=== PATIENT | male | born 2000 | race Asian ===

== ENCOUNTER 2022-07-01 16:57 | Emergency (ER) | payer OTHER, SELFPAY ==
[2022-07-01] VITALS (7 sets, daily range): BP systolic 112–114; BP diastolic 67–68; PULSE 54–72; RESP 14–16; TEMP 36.8; O2SAT 97–100; BMI 20.5
--- NOTE | 2022-07-01 17:37 | ED.GENADULT ---
HPI - General Adult General Chief complaint: Unspecified Complaint, Adult Stated complaint: Hives on face, and a cough Time Seen by Provider: 07/01/22 17:09 Source: patient Mode of arrival: ambulatory Limitations: no limitations History of Present Illness HPI narrative: 22-year-old male coming in today complaining of hives on his face. He states that the rash started a few days ago and is only getting worse. He also states that he has a mild cough and he is quite concerned because COVID infections are increasing at [place] he states. He would like to be tested for COVID-19 today. He states that the rash in his face does not itch. There are no rashes in the remainder of his body. He has no nausea vomiting, fevers or chills. Denies other systemic symptoms aside from the cough. Cough is generally mild and nonproductive, does not wake him up at night. He denies any recent traveling and denies any sick contacts. Related Data Previous Rx's Medication Instructions Recorded cephalexin 500 mg capsule 500 mg PO QID 7 days #28 caps 07/01/22 Allergies Allergy/AdvReac Type Severity Reaction Status Date / Time No Known Drug Allergies Allergy Verified 07/01/22 17:12 Review of Systems Status of ROS: Reports: 10 or more systems reviewed and unremarkable except as noted in History and below [facility] Social History Smoking Status: Never smoker How often do you have a drink containing alcohol: 2-4 times a month AUDIT-C Alcohol total score: 2 Non-prescribed substance use: marijuana (any form) Exam Narrative: Exam Narrative: Well-nourished well-developed patient in no acute distress. Alert and oriented. Answers questions appropriately. Mood and affect are appropriate. Thoughts are goal oriented and rational. No tangential or magical thinking noted. Patient speaks in full sentences without needing to catch his breath. HEENT: Normocephalic atraumatic. Pupils are equally round reactive to light. Extraocular muscles are intact. Conjunctivae are moist without any icterus noted. Moist mucous membranes. Posterior pharynx is normal. Neck is soft without any lymphadenopathy or thyromegaly. No masses are appreciated. He does have a macular rash across his cheeks under and around his nostrils. He has a couple lesions around his mouth. The ones around his nostrils are covered in a honey-colored crust very consistent with impetigo. Cardiovascular: Heart is regular rate and rhythm S1 and S2 are present without any murmurs. Lungs: Clear to auscultation bilaterally no wheezes rhonchi or rales are appreciated. Patient takes deep breaths without any discomfort. Skin: Well perfused without any other obvious rashes. He has no rash on the trunk or extremities. Const: Vital Signs, click to edit/add: Vital Signs - 24 hr 07/01/22 17:08 Temperature 98.3 F Pulse Rate [Left P ulse Oximeter] 72 Respiratory Rate 16 Blood Pressure [Ri ght Upper Arm] 114/68 Pulse Oximetry 97 Oxygen Delivery Me thod Room Air Course Course Hospital Course: We did go ahead and test him for COVID, flu and RSV-all of which were negative. Vital Signs Vital signs: Initial Vital Signs Temperature 98.3 F 07/01/22 17:08 Temperature Source Oral 07/01/22 17:08 Pulse Rate 72 07/01/22 17:08 Respiratory Rate 16 07/01/22 17:08 Blood Pressure 114/68 07/01/22 17:08 Blood Pressure Mean 83 07/01/22 17:08 Blood Pressure Position Sitting 07/01/22 17:08 Pulse Oximetry 97 07/01/22 17:08 Oxygen Delivery Method 07/01/22 17:08 Vital Signs Temperature 98.3 F 07/01/22 17:08 Pulse Rate 72 07/01/22 17:08 Respiratory Rate 16 07/01/22 17:08 Blood Pressure 114/68 07/01/22 17:08 Pulse Oximetry 97 07/01/22 17:08 Oxygen Delivery Method 07/01/22 17:08 Temperature 98.3 F 07/01/22 17:08 Pulse Rate 72 07/01/22 17:08 Respiratory Rate 16 07/01/22 17:08 Blood Pressure 114/68 07/01/22 17:08 Pulse Oximetry 97 07/01/22 17:08 Oxygen Delivery Method 07/01/22 17:08 Medical Decision Making MDM Narrative Medical decision making narrative: 22-year-old male with non bolus impetigo. Will treat with Keflex for a week. Lab Data Labs: Lab Results 07/01/22 Range/Units 17:25 SARS-CoV-2 (PCR) Negative SARS-CoV-2 (Negative) Influenza Type A (PCR) Negative PCR FLU A (Negative) Influenza Type B (PCR) Negative PCR FLU B (Negative) RSV (PCR) Negative PCR RSV (Negative) Discharge Plan Discharge Clinical Impression: Impetigo Patient Disposition: Home, Self-Care Condition: Stable Additional Instructions: Take all antibiotics as prescribed. Wash face daily with warm soapy water daily. Wash your hands frequently to prevent spreading the infection. You should avoid being around other people until 24 hours after your 1st dose of antibiotics. Return to the ER if you do not notice a bit of improvement in 48-72 hours. Prescriptions: New cephalexin 500 mg capsule 500 mg PO QID 7 Days Qty: 28 0RF Stand Alone Forms: [employer] Info Instructions
[2022-07-01 18:31] LABS: PCR FLU A Negative PCR FLU A (Negative); PCR FLU B Negative PCR FLU B (Negative); PCR RSV Negative PCR RSV (Negative); SARS PCR* Negative SARS-CoV-2 (Negative)
== END 2022-07-01 19:03 | disposition home or self-care (01) ==
LOC: ED 18:04
PROVIDERS: Emergency Provider Family Medicine
DX: L01.00 Impetigo, unspecified (principal)
CPT/HCPCS: 87502; 87634; 87635; 99283; 99284

== ENCOUNTER 2022-07-06 05:15 | Emergency (ER) | payer OTHER, SELFPAY ==
[2022-07-06 05:21] VITALS: BP 138/81; PULSE 61; RESP 16; TEMP 37.1; O2SAT 94; BMI 20.5
--- NOTE | 2022-07-06 08:27 | ED.GENADULT ---
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 Feels he is getting worse. Diagnosed for 5 days ago with impetigo initiated on cephalexin. Sounds like it has spread a little more on his face. No fever. Continues to have a good deal of yellow drainage. Was feeling something strange on his back where he thinks that there might be lesion developing. Related Data Previous Rx's Medication Instructions Recorded cephalexin 500 mg capsule 500 mg PO QID 7 days #28 caps 07/01/22 mupirocin calcium 2 % topical cream 1 applic topical TID #15 grams 07/06/22 Allergies Allergy/AdvReac Type Severity Reaction Status Date / Time No Known Drug Allergies Allergy Verified 07/06/22 05:24 Review of Systems Status of ROS: Reports: 6 or more systems reviewed and unremarkable except as noted in History and below [facility] Social History Smoking Status: Never smoker How often do you have a drink containing alcohol: 2-4 times a month AUDIT-C Alcohol total score: 2 Non-prescribed substance use: marijuana (any form) Exam Narrative: Exam Narrative: Crusting flesh-colored and yellow impetiginous lesions irregularly shaped with minimal erythematous base scattered over face all way up to forehead. Really entire face. I do not see significant secondary cellulitic change. On the back there is a white patch in the left mid low back more consistent with skin hypopigmentation or perhaps resolved fungal infection. Oropharynx is clear. There is some mild anterior cervical lymphadenopathy. Moving neck without any difficulty. Cranial nerves 2-12 intact. Const: Vital Signs, click to edit/add: Vital Signs - 24 hr 07/06/22 05:21 Temperature 98.8 F Pulse Rate [Pulse Oximeter] 61 Respiratory Rate 16 Blood Pressure [Ri ght Upper Arm] 138/81 Pulse Oximetry 94 Oxygen Delivery Me thod Room Air Documenting provider has reviewed patient's vital signs: yes Course Vital Signs Vital signs: Initial Vital Signs Temperature 98.8 F 07/06/22 05:21 Temperature Source Temporal Artery Scan 07/06/22 05:21 Pulse Rate 61 07/06/22 05:21 Pulse Rhythm 07/06/22 05:21 Pulse Strength 3+ Normal 07/06/22 05:21 Respiratory Rate 16 07/06/22 05:21 Blood Pressure 138/81 07/06/22 05:21 Blood Pressure Mean 100 07/06/22 05:21 Blood Pressure Position Sitting 07/06/22 05:21 Pulse Oximetry 94 07/06/22 05:21 Oxygen Delivery Method 07/06/22 05:21 Vital Signs Temperature 98.8 F 07/06/22 05:21 Pulse Rate 61 07/06/22 05:21 Respiratory Rate 16 07/06/22 05:21 Blood Pressure 138/81 07/06/22 05:21 Pulse Oximetry 94 07/06/22 05:21 Oxygen Delivery Method 07/06/22 05:21 Temperature 98.8 F 07/06/22 05:21 Pulse Rate 61 07/06/22 05:21 Respiratory Rate 16 07/06/22 05:21 Blood Pressure 138/81 07/06/22 05:21 Pulse Oximetry 94 07/06/22 05:21 Oxygen Delivery Method 07/06/22 05:21 Medical Decision Making MDM Narrative Medical decision making narrative: Will wound culture and add mupirocin at this point. wound culture looking for possible staph/MRSA elements as well. Continue cephalexin at this point. Culture should be available in about 2 days. Might need to change to oral medication like doxycycline or Bactrim. Medical Records Medical records reviewed: Yes I reviewed the patient's medical records Discharge Plan Discharge Clinical Impression: Impetigo Patient Disposition: Home, Self-Care Condition: Stable Additional Instructions: You are correct. I would not use any old hand soap for washing your face. Do use a gentle soap. Cetaphil is a fine idea. A wound culture will be pending here and usually identified in about 2 days. We can further direct antibiotic treatment at that point. Continue to practice good hand hygiene. Mupirocin cream from the pharmacy in the meantime. I would use this for up to 10 days. Continue cephalexin pending culture results. You might schedule a follow-up in clinic for sometime late next week just in case. Yes your Advil p.m. might help you with your sleep needs. Prescriptions: New mupirocin calcium 2 % cream 1 applic topical TID Qty: 15 1RF No Action cephalexin 500 mg capsule 500 mg PO QID 7 Days Qty: 28 0RF Follow Up/Referrals: Provider,Not a Local [Primary Care Provider] - Stand Alone Forms: [employer] Info Instructions
== END 2022-07-06 06:14 | disposition home or self-care (01) ==
PROVIDERS: Emergency Provider Family Medicine
DX: L01.00 Impetigo, unspecified (principal)
CPT/HCPCS: 87070; 87186; 87205; 99282; 99283; 99284